=== PATIENT | female | born 1995 | race Hispanic/Latino ===

== ENCOUNTER 2024-03-28 17:57 | Emergency (ER) | payer SELFPAY ==
[2024-03-28] MEDS ORDERED: Acetaminophen 500 MG TAB ONE (18:12)
[2024-03-28] MEDS ORDERED: Ibuprofen 200 MG TAB ONE (18:12)
[2024-03-28] MEDS ORDERED: Dexamethasone 20 MG/5 ML VIAL ONE (19:31)
== END 2024-03-28 20:03 | disposition home or self-care (01) ==
LOC: CSHERS 17:57
DX: J10.1 Influenza due to other identified influenza virus with other respiratory manifestations (principal)
CPT/HCPCS: 87428; 96372; 99283; J1100